=== PATIENT | male | born 1950 | race Hispanic/Latino ===

== ENCOUNTER 2016-12-25 07:45 | Observation (INO) | payer MEDICARE ==
[~2016-12-25] VITALS: Ht 162.6 cm; Wt 109.2 kg
[2016-12-25] VITALS (13 sets, daily range): BP systolic 102–136; BP diastolic 58–90; PULSE 65–92; RESP 13–23; O2SAT 96–100
[~2016-12-25 07:45] MED LIST: SILD100T PO
--- NOTE | 2016-12-25 07:48 | ED.REPORT ---
HPI-Chest Pain 40 and Over Date of Service Dec 25, 2016 ED Provider: Angela Heller MD Patient is a 66 year old male with a hx of borderline DM, chronic back pain and HTN who presents to the ED after having a near syncopal episode in diagnostic imaging for which a stat medical team was called. He was transferred from diagnostic imaging to the emergency department.. Pt states, "my head feels so heavy I can't open my eyes." He reports he has been having intermittent chest pain for a quite a while but it has recently gotten worse. The pain waxes and wanes but never completely dissipates. He currently rates his pain at a 5/10 in severity and does not radiate. Pt c/o associated SOB, dizziness, and diaphoresis. He has never and a stroke or heart attack. Pt has a prescription for nitroglycerin at home and has not taken his medication today. He reports that the nitroglycerin helps his chest pain. Dr. Hicks is is PCP. He is scheduled for an echo on Sunday. Nursing Notes Stated Complaint: DIZZY Nursing Notes Reviewed: Yes Allergies: Coded Allergies: No Known Allergies (Verified , 03/29/07) Scheduled PRN Sildenafil Citrate (Viagra) 100 Mg Tablet 100 MG PO UD PRN PRN for sexual activity General Time Seen by MD: 07:48 Transferred From: Private physician office Chief Complaint Chest pain Hx Obtained From: Patient, Claims Analyst Sudden in Onset?: Yes Onset Occurred: Just prior to arrival Symptom Duration: Since onset Location: : Chest left Radiation: : Does not radiate Severity: Current: Pain level 5 out of 10 Recent Healthcare: Recent doctor visit Similar Sx Previous: Yes Past Medical History Past Medical History borderline diabetic chronic lower back pain with sciatic down the right leg Reports: Hypertension Past Surgical History right shoulder surgery Smoking History Current Every Day Smoker Ambulatory Status Independent Review of Systems chronic lower back pain with sciatic down the right leg workup scheduled for next week Respiratory: Reports: Shortness of breath Cardiovascular: Reports: Chest pain Skin: Reports Diaphoresis Neurologic: Reports: Dizziness Complete sys rev & neg: except as marked. Physical Exam Initial Vital Signs Vital Signs (First) Date Time Temp Pulse Resp B/P Pulse Ox O2 Delivery O2 Flow Rate FiO2 12/25/16 07:49 36.7 73 21 102/58 100 Nasal Cannula 2 Initial VS: Reviewed Head / Eyes: Atraumatic, Normocephalic, PERRL ENT: Mucous membranes moist, Conjunctiva normal, No scleral icterus Back: No CVA tenderness Extremities: Vascular intact, Neuro intact, No swelling, No tenderness General/Constitutional: Awake, Cooperative well profused Respiratory / Chest: Atraumatic, Breath sounds NL, Breath sounds = bilat, No respiratory distress, No rales, No rhonchi, No wheezing, No retractions Cardiovascular: Heart rate NL, Regular rhythm, Heart sounds NL, No gallop, No murmurs, No rubs reproducible chest pain along the left sternal area, along the rib under the nipple line, but there is also chest pain that dissipates when treated with nitroglycerine Abdomen: Atraumatic, Soft, Non-tender, No guarding, No rebound, BS normoactive Interpretation & Diagnostics Lab Results Interpretation Result Diagram: 12/25/16 0755 12/25/16 0755 Test 12/25/16 07:55 White Blood Count 9.4th/mm3 (3.8-10.1) Red Blood Count 4.64mil/mm3 (4.40-5.80) Hemoglobin 14.4g/dL (13.8-17.2) Hematocrit 44.2% (41.0-50.0) Mean Corpuscular Volume 95.3fL (81-100) Mean Corpuscular Hemoglobin 31.0pg (27.0-35.0) Mean Corpuscular Hemoglobin Concent 32.6% (32.0-37.0) Red Cell Distribution Width 13.1% (12.3-15.4) Platelet Count 266bil/L (150-400) Neutrophils (%) (Auto) 42.6% (40-74) Lymphocytes (%) (Auto) 44.9% (14-46) Monocytes (%) (Auto) 8.1% (4-12) Eosinophils (%) (Auto) 3.5% (0-5) Basophils (%) (Auto) 0.6% (0-3) Sodium Level 138mEq/L (134-144) Potassium Level 4.4mEq/L (3.5-5.2) Chloride Level 102mEq/L (97-108) Carbon Dioxide Level 20mmol/L (18-29) Blood Urea Nitrogen 27mg/dL (8-27) Creatinine 0.99mg/dL (0.76-1.27) Estimat Glomerular Filtration Rate 80mL/min (>59) Glucose Level 136mg/dL (60-99) Calcium Level 8.5mg/dL (8.5-10.1) Total Bilirubin 0.2mg/dL (0.0-1.2) Aspartate Amino Transf (AST/SGOT) 18U/L (0-50) Alanine Aminotransferase (ALT/SGPT) 20U/L (0-44) Alkaline Phosphatase 53U/L (25-160) Total Protein 7.6g/dL (6.4-8.4) Albumin 4.2g/dL (3.4-5.0) Hold [place] Top Tube Received (Received) ECG Interpretation ECG Interpretation: Nonspecific intraventricular conduction delay Time: 07:46 Interpreted by: ED physician Normal ECG Interpretation: Normal sinus rhythm (67) ECG Interpretation: No acute changes with chest pain Time: 08:32 Interpreted by: ED physician Normal ECG Interpretation: Normal sinus rhythm (71) Re-Eval/Medical Decision Med Decision/Clinical Course Patient has 2 distinct types of chest pain. Clearly has musculoskeletal pain is reproducible with pressure on the left rib just under the nipple line and along the sternal border. Also has left internal chest pain that was associated with this near syncopal episode diaphoresis and acute dyspnea. At this point clearly needs additional cardiac workup. Was in diagnostic imaging this morning for stress test and is scheduled for an echocardiogram on Sunday. The internal chest pain is significantly diminished if not completely resolved with nitroglycerin and it remains abated with Nitropaste. Musculoskeletal chest pain was treated with Toradol and patient is transferred to the floor prior to efficacy reevaluation Recommend admission for 24-hour observation cycled enzymes see if he stable to do a nuclear medicine stress test tomorrow. He will also need to have echocardiogram facilitated while in-house Time of Eval: 10:03 Patient Status: Condition improved, Pain improved Re-Evaluation/Progress Note: Pt rechecked. Pain is reduced with medication. Concerned the pt is experiencing 2 types of pain, in his ribs and his heart. Informed patient of need for admission to monitor his heart activity. Counseled Regarding: Diagnosis, Lab results, Need for admission Discharge & Departure Primary Impression: Chest pain Chest pain type: unspecified Qualified Code: R07.9 - Chest pain, unspecified Disposition: ADMITTED TO HOSPITAL Discharge Condition All VS Reviewed: Yes Condition: Stable Referrals: Jackson Burns MD (PCP) Reynold Attestation Portion of this note were transcribed by Live Caro. I, Dr. Heller, personally performed the history, physical exam, and medical decision-making: I reviewed and confirmed the accuracy for the information in the transcribed note. Signed by: reynold Charlton, 12/25/16 1000 copies to: Jackson Burns MD, Shawna L MD Dec 25, 2016 07:48 LIVE CARO Dec 25, 2016 08:57
[2016-12-25 08:04] LABS: BASOPHILS % (AUTO) 0.6 % (0-3); EOSINOPHILS % (AUTO) 3.5 % (0-5); MONOCYTES % (AUTO) 8.1 % (4-12); Mean Corpuscular Volume 95.3 fL (81-100); NEUTROPHILS % (AUTO) 42.6 % (40-74); Platelet Count 266 bil/L (150-400)
[2016-12-25] MEDS ORDERED: Nitroglycerin 2% 1 Gm Ointment TOPICAL ONE (08:30)
[2016-12-25 08:31] LABS: TROPONIN T 0.01 ug/L (0.0-0.011)
[2016-12-25 08:42] LABS: Magnesium 2.2 mg/dL (1.6-2.6)
[2016-12-25] MEDS ORDERED: Ondansetron 2 mg/mL 2 mL Inj ONE (09:05)
[2016-12-25] MEDS ORDERED: Ondansetron 2 mg/mL 2 mL Inj IVPUSH PRN ×2 (11:30→12:30)
[2016-12-25] MEDS ORDERED: Alum-Mag Hydrox-Simeth 30 mL Suspension PO PRN ×2 (11:30→12:30)
[2016-12-25] MEDS ORDERED: Polyethylene Glycol (PEG) 17 Gm Powder PO PRN (12:30)
[2016-12-25] MEDS ORDERED: Atropine 1 mg/10 mL (Code) Syringe IVPUSH PRN (12:30)
[2016-12-25] MEDS ORDERED: Senna-Docusate 8.6-50 mg Tablet PO PRN (12:30)
--- NOTE | 2016-12-25 12:48 | PCM.HPMED ---
Subjective Date of Service Dec 25, 2016 Primary Provider: Admitting Physician: Jaden Pacheco MD Primary Care Physician: Jackson Burns MD Attending Physician: Jaden Pacheco MD Admit Status: From the Emergency Department, 23-Hour Observation Chief Complaint: Chest Pain, Near Syncope History of Present Illness: Patient is a 66 year old male with a past medical history of Hyperlipidemia. He presents to the ER today complaining of chest pain and near syncope. Pt was having an outpatient exercise stress test today, when he became very lightheaded and nearly collapsed. Pt states his head "felt very heavy". He states he did not lose consciousness and fall. Pt states he began to feel very dizzy during the test and felt he was going to fall, and his test was stopped and he was sent to the ER for further evaluation. Pt states he is having chest pain also today. He states he has been having ongoing chest pain over the left side of his chest for quite some time, however, today it seemed to worsen. Pt states the pain is a sharp sensation. He is unable to relate whether this pain improves or worsens with activity. He does report his pain is associated with shortness of breath, diaphoresis, and dizziness. He denies palpitations, nausea , and vomiting. In the ER, pt was given topical Nitroglycerin which did improve his pain almost immediately, he reports. Pt is currently symptom free. No other complaints or concerns at this time. Review of Systems: All systems reviewed and are negative except for what has already been mentioned in the HPI. Allergies Coded Allergies: No Known Allergies (Verified , 03/29/07) Home Medications 1. Atorvastatin, dosage unknown PMH 1. Hyperlipidemia 2. Obesity Surgical History None Family History 1. Father - of an unknown cancer, pt denies any hx of CAD 2. Mother - of breast cancer, had a hx of Diabetes Mellitus Social History Hx Alcohol Use: No Hx Substance Use: No Hx Tobacco Use: No (1-2 cigs/day @ work) Smoking Status: Never Smoker Exam Vital Signs Vital Sign - Last Date Time Temp Pulse Resp B/P Pulse Ox O2 Delivery O2 Flow Rate FiO2 12/25/16 11:53 36.4 92 20 122/81 96 Room Air 12/25/16 11:18 2 Exam GEN: NAD, Pt laying in bed comfortably HEENT: AT/NC; PERRLA, EOMI, MM moist NECK: Supple CARDIAC: RRR, No M/R/G PULM: CTAB ABD: Soft, NT, ND, Positive bowel sounds in all quadrants, No hepatosplenomegaly appreciated EXT: No C/C/E bilaterally; No calve tenderness bilaterally SKIN: Warm, dry, pink, and intact NEURO: Alert and oriented x3; Following all commands Lab and Diagnostics Result Diagram: 12/25/16 0755 12/25/16 0755 Assessment & Plan Patient is a 66 year old male with a history of Hyperlipidemia admitted to hospital for near syncope, and chest pain. 1. Chest Pain - Present on admission - EKG in ER did not reveal any ST of T wave changes indicative of myocardial ischemia - Start Aspirin 81 mg daily - SL Nitroglycerin PRN - Check Troponin q 6 hours x4 - Check Lipid Panel in AM - Telemetry monitoring - Will order an ECHO at this time - NPO after midnight for NM cardiac stress test in AM - Will order a CT angiogram of the chest to rule out PE now - EKG PRN chest pain - IV Morphine PRN chest pain not relieved by SL Nitroglycerin 2. Hyperlipidemia - Atorvastatin 80 mg q HS - Check fasting lipid panel in AM 3. Obesity 4. Disposition - Anticipate discharge to home in AM if work-up for ACS is negative FULL CODE, per discussion with patient at bedside. Jaden Pacheco MD Dec 25, 2016 12:48
[2016-12-25] MEDS: 0.9% Sodium Chloride 1,000 ML IV SCH (13:02)
[2016-12-25 13:53] LABS: TROPONIN T < 0.010 ug/L (0.0-0.011)
[2016-12-25 14:01] LABS: Creatine Kinase 106 U/L (21-232); Magnesium 2.1 mg/dL (1.6-2.6)
--- NOTE | 2016-12-25 14:11 | DRSVH ---
PROCEDURE: CT ANGIO CHEST PULMONARY EMBOLISM ([id number]) INDICATIONS: Chest Pain, Rule out PE TECHNIQUE: After the administration of intravenous contrast, 2 mm thick sections acquired from the pulmonary api ayana to the posterior costophrenic angles. 3-dimensional maximum intensity projection (MIP) coronal a nd sagittal reformats were then acquired through the thorax. For radiation dose reduction, the follo wing was used: automated exposure control, adjustment of mA and/or kV according to patient size. COMPARISON: [facility] , CT, CHEST W/O CONTRAST, 04/17/2011, 8:53. [facility], CT, CHEST WITH CONTRAST, 08/30/2000, 8:47. FINDINGS: Image quality: Excellent. Pulmonary arteries: Pulmonary arteries are normal in size, and demonstrate no intraluminal filling d efects to suggest central pulmonary embolism. Lungs and pleura: A 13 mm diameter nodule within the right posterior lung base is present, as before. There is a new cavity surrounding this nodule, measuring 21 mm, just in this may represent a mycetom a. There is increased, moderate basilar predominant interstitial pulmonary opacity. Calcified granulo ma within the right upper lobe posterolaterally is present, as before. No pleural effusions or pneumo thorax. Central and peripheral airways are patent. Mediastinum: Heart size is normal, without pericardial effusion. No mediastinal or hilar adenopathy . No change in mildly prominent lymph node adjacent to the distal esophagus, measuring 9 mm short axi s. Thoracic aorta is normal in caliber and enhancement. Esophagus is normal in caliber, without hiat al hernia. Bones and chest wall: No suspicious bony lesions. Ribs and thoracic spine appear intact throughout. Thyroid gland and is within normal limits. No axillary or supraclavicular adenopathy. Abdomen: Visualized portions of the upper abdomen demonstrate an increased, 20 mm diameter partially exophytic low-density focus protruding anteriorly from the pancreatic tail. IMPRESSION: 1. No acute process. No pulmonary embolus. 2. Remote granulomatous disease. 3. The previously seen right lower lobe nodule is unchanged. However, there is a new surrounding cavi ty, suggesting that this may represent a mycetoma. 3. Increased, moderate basilar predominant interstitial lung disease. 4. Increased low density focus involving the pancreatic tail; initial further assessment with pancrea tic protocol CT is recommended. Dictated by: Joe Blanchard M.D. on 12/25/2016 at 14:03 Approved by: Joe Blanchard M.D. on 12/25/2016 at 14:09
[2016-12-25] MEDS ORDERED: ATOR20TA PO (14:51)
[2016-12-25] MEDS ORDERED: NITR0.4T SL (14:53)
--- NOTE | 2016-12-25 15:52 | NUR ---
Case Management: Explained SWARTZ with supervisor assembly room present. Patient signed. Provided copy to patient and original in chart. Patient denied questions at this time. CPerryRNCCM.
[2016-12-25] MEDS: Sodium Chloride LOK Flush 10 mL Syringe IVFLUSH SCH (16:07)
--- NOTE | 2016-12-25 16:52 | NUR ---
Admit Patient arrived to [facility] around 1445 from ED. Patient report was called to Kaye Meza from ED and Kaye Meza gave report to Naomi Griffith RN. Patient did have continued pain to lateral chest of 2/10. Patient was oriented to call light, bed, visiting hours, smoking policy, room and staff. Patient was connected to NS at 80mL/hour. Telemetry placed on patient. Patient admit was completed with the use of alpine guide.
[2016-12-25 19:22] LABS: TROPONIN T < 0.010 ug/L (0.0-0.011)
[2016-12-25 19:32] LABS: Creatine Kinase 116 U/L (21-232)
[2016-12-26] VITALS (8 sets, daily range): BP systolic 128–158; BP diastolic 76–89; PULSE 68–95; RESP 18–20; O2SAT 94–98
[2016-12-26] MEDS: Sodium Chloride LOK Flush 10 mL Syringe IVFLUSH SCH ×3 (00:30→15:42)
[2016-12-26 01:52] LABS: Creatine Kinase 122 U/L (21-232)
[2016-12-26] MEDS: 0.9% Sodium Chloride 1,000 ML IV SCH ×3 (03:10→17:58)
[2016-12-26 06:01] LABS: BASOPHILS % (AUTO) 0.5 % (0-3); EOSINOPHILS % (AUTO) 3.2 % (0-5); MONOCYTES % (AUTO) 8.7 % (4-12); Mean Corpuscular Hemoglobin 31.3 pg (27.0-35.0); Mean Corpuscular Volume 95.4 fL (81-100); NEUTROPHILS % (AUTO) 44.7 % (40-74); Platelet Count 250 bil/L (150-400)
--- NOTE | 2016-12-26 06:20 | NUR ---
Chest Pain Patient states continuous left lateral chest pain/pressure 2-02/19, "not completely go away" for years due to work related accident per pt, increase with deep breathing, no radiation. RT call for stat EKG at late pm, no apparent change compared with yesterday, Nitroglycerin givenx2, pain down to 2 in 30min,then resolved and pt sleeping comfortable overnight. VSS. Tele: SR [phone] per laboratory monitor.
[2016-12-26 06:29] LABS: Creatine Kinase 121 U/L (21-232)
--- NOTE | 2016-12-26 14:05 | DRSVH ---
PROCEDURE: 2 DAY STRESS TEST Rest and exercise myocardial perfusion SPECT with gated imaging and ejection fraction RADIOPHARMACEUTICAL: 20.3 mCi Tc-99m tetrafosmin IV at rest and 22.1 mCi Tc-99m tetrafosmin IV at pea k exercise. [id number] was performed. INDICATIONS: Chest Pain. TECHNIQUE: Radiopharmaceutical was injected at peak stress test, and also at rest. SPECT images wer e obtained. SPECT myocardial perfusion images were displayed in short axis, horizontal long axis, an d vertical long axis views. Gated images were reviewed using [employer] software. COMPARISON: None. CARDIAC STRESS: A standard Matty treadmill exercise tolerance test was performed by the patient under the supervision of an attending staff. The patient exercised for 6 minutes and 0 seconds; functional aerobic impair ment (ILIANA) is +11 %. Hemodynamic data: There is normal blood pressure and heart rate response to exercise stress. Patien t achieved 95% of maximum predicted heart rate at peak exercise. Symptoms: Patient had 7/10 chest pain at peak stress. Location of chest discomfort was upper chest a nd lower neck area. EKG: No diagnostic EKG changes of ischemia; no ectopy. FINDINGS: Raw data: There is good myocardial labeling by radiotracer. No significant motion artifacts. Left ventricle function: Gated images demonstrate normal left ventricle wall thickening. No segment al wall motion abnormality. The left ventricle resting end-diastolic volume is 83 mL. Left ventricl e stress ejection fraction is more than 70%; normal values are above 45%. Myocardial perfusion: There is an inferior perfusion defect noted on the supine stress images. Howev er on prone stress images the perfusion defect resolves completely. Otherwise there are no other perf usion defects noted on both stress and rest images. IMPRESSION: This is a normal myocardial perfusion study. There is an inferior perfusion defect which resolves with prone imaging. This is consistent with diaphragmatic attenuation artifact. LV wall mot ion and LV ejection fraction are both normal. Stress EKG is normal. Patient had chest pain during pea k stress that based on the findings mentioned above this is most likely noncardiogenic chest pain. Eileen miranda this is considered to be at low risk study. Dictated by: Pietro Salinas Jr., M.D. on 12/26/2016 at 13:59 Approved by: Pietro Salinas Jr., M.D. on 12/26/2016 at 14:03
--- NOTE | 2016-12-26 14:37 | NUR ---
Chest pain Pt denies chest pain this shift. Pt ambulating in hallway independently as well as in room
--- NOTE | 2016-12-26 15:06 | PCM.PNMED ---
Subjective Date of Service Dec 26, 2016 Subjective Patient reports that he is doing well. He denies any chest pain, shortness of breath, sweating, nausea, vomiting or diarrhea. Pt states that his only complaint is that he was not able to have coffee, and thus feels very sleepy this morning. Patient reports that he is at his baseline of health. Exam Vital Signs Vital Sign - Last Date Time Temp Pulse Resp B/P Pulse Ox O2 Delivery O2 Flow Rate FiO2 12/26/16 14:41 36.8 68 18 158/89 98 Room Air 12/25/16 11:18 2 Intake and Output 12/25/16 12/25/16 12/26/16 Cumulative From/Thru 14:59 22:59 06:59 12/25/16 07:49 - 12/26/16 06:57 Intake Total 936 ml 2172 ml 3108 ml Output Total 1325 ml 1325 ml Balance 936 ml 847 ml 1783 ml Intake Oral 768 ml 1100 ml 1868 ml IV Total 168 ml 1072 ml 1240 ml Output Urine Total 1325 ml 1325 ml # Voids 0 0 IVs and Medications Medications Reviewed: Medications were reviewed in detail Lab and Diagnostics Result Diagram: 12/26/16 0510 12/26/16 0510 X-Rays, CTs and MRIs PROCEDURE: CT ANGIO CHEST PULMONARY EMBOLISM ([id number]) INDICATIONS: Chest Pain, Rule out PE TECHNIQUE: After the administration of intravenous contrast, 2 mm thick sections acquired from the pulmonary apices to the posterior costophrenic angles. 3-dimensional maximum intensity projection (MIP) coronal and sagittal reformats were then acquired through the thorax. For radiation dose reduction, the following was used: automated exposure control, adjustment of mA and/or kV according to patient size. COMPARISON: [facility] , CT, CHEST W/O CONTRAST, 04/17/2011, 8: [address]. [facility], CT, CHEST WITH CONTRAST, 08/30/2000, 8:47. FINDINGS: Image quality: Excellent. Pulmonary arteries: Pulmonary arteries are normal in size, and demonstrate no intraluminal filling defects to suggest central pulmonary embolism. Lungs and pleura: A 13 mm diameter nodule within the right posterior lung base is present, as before. There is a new cavity surrounding this nodule, measuring 21 mm, just in this may represent a mycetoma. There is increased, moderate basilar predominant interstitial pulmonary opacity. Calcified granuloma within the right upper lobe posterolaterally is present, as before. No pleural effusions or pneumothorax. Central and peripheral airways are patent. Mediastinum: Heart size is normal, without pericardial effusion. No mediastinal or hilar adenopathy. No change in mildly prominent lymph node adjacent to the distal esophagus, measuring 9 mm short axis. Thoracic aorta is normal in caliber and enhancement. Esophagus is normal in caliber, without hiatal hernia. Bones and chest wall: No suspicious bony lesions. Ribs and thoracic spine appear intact throughout. Thyroid gland and is within normal limits. No axillary or supraclavicular adenopathy. Abdomen: Visualized portions of the upper abdomen demonstrate an increased, 20 mm diameter partially exophytic low-density focus protruding anteriorly from the pancreatic tail. IMPRESSION: 1. No acute process. No pulmonary embolus. 2. Remote granulomatous disease. 3. The previously seen right lower lobe nodule is unchanged. However, there is a new surrounding cavity, suggesting that this may represent a mycetoma. 3. Increased, moderate basilar predominant interstitial lung disease. 4. Increased low density focus involving the pancreatic tail; initial further assessment with pancreatic protocol CT is recommended. Dictated by: Joe Blanchard M.D. on 12/25/2016 at 14:03 Approved by: Joe Blanchard M.D. on 12/25/2016 at 14:09 PROCEDURE: 2 DAY STRESS TEST Rest and exercise myocardial perfusion SPECT with gated imaging and ejection fraction RADIOPHARMACEUTICAL: 20.3 mCi Tc-99m tetrafosmin IV at rest and 22.1 mCi Tc-99m tetrafosmin IV at peak exercise. Kir-clt-nfkeyvox was performed. INDICATIONS: Chest Pain. TECHNIQUE: Radiopharmaceutical was injected at peak stress test, and also at rest. SPECT images were obtained. SPECT myocardial perfusion images were displayed in short axis, horizontal long axis, and vertical long axis views. Gated images were reviewed using AutoQUANT software. COMPARISON: None. CARDIAC STRESS: A standard Matty treadmill exercise tolerance test was performed by the patient under the supervision of an attending staff. The patient exercised for 6 minutes and 0 seconds; functional aerobic impairment (ILIANA) is +11 %. Hemodynamic data: There is normal blood pressure and heart rate response to exercise stress. Patient achieved 95% of maximum predicted heart rate at peak exercise. Symptoms: Patient had 7/10 chest pain at peak stress. Location of chest discomfort was upper chest and lower neck area. EKG: No diagnostic EKG changes of ischemia; no ectopy. FINDINGS: Raw data: There is good myocardial labeling by radiotracer. No significant motion artifacts. Left ventricle function: Gated images demonstrate normal left ventricle wall thickening. No segmental wall motion abnormality. The left ventricle resting end-diastolic volume is 83 mL. Left ventricle stress ejection fraction is more than 70%; normal values are above 45%. Myocardial perfusion: There is an inferior perfusion defect noted on the supine stress images. However on prone stress images the perfusion defect resolves completely. Otherwise there are no other perfusion defects noted on both stress and rest images. IMPRESSION: This is a normal myocardial perfusion study. There is an inferior perfusion defect which resolves with prone imaging. This is consistent with diaphragmatic attenuation artifact. LV wall motion and LV ejection fraction are both normal. Stress EKG is normal. Patient had chest pain during peak stress that based on the findings mentioned above this is most likely noncardiogenic chest pain. Overall this is considered to be at low risk study. Dictated by: Pietro Salinas Jr., M.D. on 12/26/2016 at 13:59 Approved by: Pietro Salinas Jr., M.D. on 12/26/2016 at 14:03 Assessment & Plan Patient is a 66 year old male with a history of Hyperlipidemia admitted to hospital for near syncope, and chest pain. Acute chest pain, present on admission, resolved - EKG in ER did not reveal any ST of T wave changes indicative of myocardial ischemia - Started Aspirin 81 mg daily - SL Nitroglycerin PRN -Troponin have all been negative - Lipid Panel performed, results above -ECHO pending -NM cardiac stress test--reported as low risk study -CT angiogram of the chest--No PE, remote granulomatous disease.The previously seen right lower lobe nodule is unchanged. However, there is a new surrounding cavity, suggesting that this may represent a mycetoma.Increased, moderate basilar predominant interstitial lung disease.Increased low density focus involving the pancreatic tail" - EKG PRN chest pain - IV Morphine PRN chest pain not relieved by SL Nitroglycerin Incidental finding of low density focus involving pancreatic tail, ongoing -CT pancreas protocol ordered, results pending Hyperlipidemia - Continue Atorvastatin 80 mg q HS Obesity -Recommend outpatient guidance for lifestyle changes, and weight loss. Disposition - Anticipate discharge to home in AM if work-up for ACS is negative FULL CODE, per discussion with patient at bedside. VTE Mechanical Devices: Intermittant Pneumatic CD Resuscitation Status: CPR: Attempt Resuscitation Attending Statement The patient was seen and examined together with Dr. Edouard on 12/26/2016 and I agree with the history, exam and plan as outlined in the note above. Kacie Edouard DO Dec 26, 2016 15:06 Jaden Pacheco MD Dec 27, 2016 12:42
--- NOTE | 2016-12-26 15:33 | NUR ---
Social Work Initial Assessment: SW met with patient at bedside to discuss discharge plan. Patient is a 66 year old male admitted under observation status on 12/25/16 for chest pain. Patient payer as [email or web address]. Patient has no terminal manager disability nor [place] benefits. Patient PCP as MD Burns. Patient resides in [facility] with [place], who assist with care needs. Patient pharmacy of choice as [facility]. Patient has no previous HHC, SNF, DME or AD history. Patient states being independent with needs at baseline and has no identified discharge needs at this time. SW will continue to follow. PLAN: Home with via POV. No anticipated discharge needs identified at this time. SW to follow pending further clinical course Toni PENA Addendum: 12/26/16 at 1536 by GELY SHARP SS Amended: Links added.
--- NOTE | 2016-12-26 16:27 | DRSVH ---
[facility] [address] [place] [address] Echocardiogram Report Name: MARTÍN FERNANDEZ LStudy Date: 12/26/2016 Height: 64 in Hospital Exam Location: [facility] Weight: 239 lb Gender: Male BSA: 2.1 m2 : 1950 Age: 66 yrs BP: 129/88 mmHg Reason For Study: Chest pain Ordering Physician: HOSPITALIST [facility] Performed By: Herbert Maguire Referring Physician: KATH ALVAREZ Interpretation Summary 1) Borderline concentric left ventricular hypertrophy with normal size, wall motion, and systolic function (EF 65-70%). 2) Normal right ventricular size and function. 3) No significant valvular abnormalities. 4) No prior Echo available for comparison. Procedure: A two-dimensional transthoracic echocardiogram with color flow and Doppler was performed. The study quality was technically adequate. A contrast injection of Definity was performed to improve assessment of LV function. The patient was in normal sinus rhythm during the exam. Left Ventricle: The left ventricle is normal in size. There is borderline concentric left ventricular hypertrophy. The ejection fraction is estimated to be 65-70%. Left ventricular systolic function is normal. Left ventricular wall motion is normal. Right Ventricle: The right ventricle is normal in size, thickness and function. Atria: The left atrial size is normal. The right atrium grossly appears normal in size. The interatrial septum is intact with no evidence for an atrial septal defect. Mitral Valve: The mitral valve is normal. There is trace mitral regurgitation. Aortic Valve: The aortic valve is normal in structure and function. There is no aortic valve stenosis. No aortic regurgitation is present. Tricuspid Valve: The tricuspid valve is normal. There is mild tricuspid regurgitation. Right ventricular systolic pressure is estimated to be 32 mmHg plus the clinically estimated CVP which cannot be estimated on this exam. Pulmonic Valve: The pulmonic valve leaflets are thin and pliable; valve motion is normal. There is no pulmonic valvular regurgitation. Great Vessels: The aortic root is normal size. The ascending aorta is at the upper limits of normal in size. The pulmonary artery is normal size. The inferior vena cava was not well visualized. Pericardium/ Pleura There is no pericardial effusion. There is an anterior echo-free space consistent with a fat pad. There is no pleural effusion. MMode/2D Measurements & Calculations LVIDd: 4.9 cm LA A2 area LVOT diam: 2.5 cm LV mauricio. diameter/BSA LVIDs: 3.0 cm Ao root diam (cm/m^2): 2.3 FS: 38.1 % IVSd: 1.4 cm LA A4 area asc Aorta Diam LVPWd: 1.1 cm LA length Ao Arch Diam (vol): 5.3 cm (Prox Trans): LA vol: 52.9 ml .9 cm LA vol index : 25.1 ml/m2 LV sys. diameter/BSA (cm/m^2): 1.4 Doppler Measurements & Calculations Ao V2 max MV E max codey MV E/A: 0.70 TR max codey : 141.8 cm/sec : 71.9 cm/sec Med Peak E' Codey : 280.9 cm/sec Ao max P.0 mmHg MV A max codey TR max PG Ao mean P.8 mmHg : 103.4 cm/sec E/E' med: 11.6 : 31.6 mmHg LVOT Max Codey Lat Peak E' Codey PA V2 max : 118.7 cm/sec : 104.2 cm/sec E/E' lat: 10.0 PA mean PG PRIETO(I,D): 4.8 cm E/e' average : 2.4 mmHg sev ratio: 0.98 MV dec time: 0.14 sec Ao V2 mean LV V1 max PG PA V2 mean : 93.3 cm/sec : 73.4 cm/sec Ao V2 VTI: 25.5 cmLV V1 VTI PA pr(Accel) : 25.0 cm : 47.9 mmHg PRIETO(V,D): 4.1 cm2 PRIETO indexed to [facility] (cm^2/m^2): 2.3 Reading Physician:04:26 PM
--- NOTE | 2016-12-26 16:59 | DRSVH ---
PROCEDURE: CT ABDOMEN PANCREATIC PROTOCOL INDICATIONS: Pancreatic lesion on recent chest CT. TECHNIQUE: Noncontrast 3 mm thick sections acquired through the pancreas. After the administration of intraveno us contrast, 3 mm thick pancreatic-phase images acquired through the pancreas, and 5 mm thick portal venous-phase images then acquired from the diaphragm to the iliac crests. 5 mm thick coronal and sag ittal reformats were performed. For radiation dose reduction, the following was used: automated exp osure control, adjustment of mA and/or kV according to patient size. COMPARISON: [facility] , CT, CHEST W/O CONTRAST, 04/17/2011, 8:53. [facility], CT, CT ANGIO CHEST PE, 12/25/2016, 13:33. FINDINGS: Image quality: Excellent. Lung bases: Scarring and fibrotic changes are redemonstrated in the visualized lung bases. Within t he right lower lobe, there is an unchanged 1.6 cm nodule with an associated small cavity redemonstrat ed. There is a small hiatal hernia. Heart size is normal. Pancreas: Within the tail of the pancreas, there is an ovoid cystic mass measuring up to 2.8 x 2.4 cm in transverse dimension which demonstrates internal enhancement following contrast administration. This appears enlarged compared to the prior there is no associated pancreatic duct dilatation. No ad ditional pancreatic lesions identified.. Other solid organs: Liver and spleen are normal in size. There is mild focal fatty infiltration wit hin the anterior left hepatic lobe. Gallbladder appears within normal limits without calcified galls tones. Biliary system is non dilated. No adrenal nodules. Kidneys are normal in size and enhanceme nt, without hydronephrosis. Peritoneum and bowel: Visualized bowel loops demonstrate normal wall thickness and caliber. There is colonic diverticulosis. No free fluid or air. Nodes and vessels: No retroperitoneal or mesenteric adenopathy by size criteria. Aorta and inferior vena cava are normal in size. Bones: No suspicious bony lesions. No vertebral body compression fractures. Miscellaneous: No ventral hernias. IMPRESSION: 1. Lobulated enhancing cystic mass within the tail of the pancreas most likely represents a mucinous neoplasm such as mucinous cystadenocarcinoma. The differential includes a side branch intraductal p apillary mucinous neoplasm (IPMN). Recommend surgical consultation. 2. Stable 1.6 cm right lower lobe pulmonary nodule. Dictated by: Hakeem Howard M.D. on 12/26/2016 at 16:52 Approved by: Hakeem Howard M.D. on 12/26/2016 at 16:57
--- NOTE | 2016-12-26 18:35 | NUR ---
Activity/pain Assumed care of pt at 1500. Pt up, ambulating in room and hallways. Denies any CP/discomfort at this time. Currently resting comfortably in bed which is in the lowest, locked position.
[2016-12-27] MEDS: Sodium Chloride LOK Flush 10 mL Syringe IVFLUSH SCH ×2 (00:27→08:30)
[2016-12-27 00:58] VITALS: BP 124/81; PULSE 83; RESP 18; O2SAT 94
--- NOTE | 2016-12-27 05:18 | NUR ---
Uneventful Night Pt alert and orientedx3,denies chest pain/pressure/any pain/SOB/n/v/fever/chills. VSS, sleeping comfortably after Ambien taken at HS.
[2016-12-27 05:31] VITALS: BP 131/85; PULSE 68; RESP 18; O2SAT 96
[2016-12-27 05:58] LABS: BASOPHILS % (AUTO) 0.5 % (0-3); EOSINOPHILS % (AUTO) 3.6 % (0-5); MONOCYTES % (AUTO) 8.9 % (4-12); Mean Corpuscular Hemoglobin 31.3 pg (27.0-35.0); Mean Corpuscular Volume 95.4 fL (81-100); NEUTROPHILS % (AUTO) 44.8 % (40-74); Platelet Count 234 bil/L (150-400)
[2016-12-27] MEDS: 0.9% Sodium Chloride 1,000 ML IV SCH (06:07)
[2016-12-27 09:11] VITALS: BP 128/81; PULSE 78; RESP 16; O2SAT 99
[2016-12-27 10:34] VITALS: PULSE 110
--- NOTE | 2016-12-27 11:43 | NUR ---
shift report Pt alert and orientated x 3. Denies chest pain, denies SOB, denies N/V/D. Pt states he "feels good" and is awaiting discharge. Pt ambulating halls frequently without any difficulties. Pt currently resting, bed in low position, call light within reach. Pt has no questions at this time.
[2016-12-27 13:44] VITALS: BP 122/73; PULSE 80; RESP 16; O2SAT 96
--- NOTE | 2016-12-27 14:26 | PCM.DIMED ---
Kacie Edouard DO 12/27/16 1426: Discharge Instructions Date of Service Dec 27, 2016 Dates of Hospitalization Dec 25, 2016 at 10:39 Discharge Diagnosis Discharge Diagnosis Acute chest pain, present on admission, resolved Incidental finding of low density focus involving pancreatic tail, ongoing Hyperlipidemia Obesity Diet No restrictions Activity No restrictions Call your provider Fever or Chills, Shortness of breath, Bleeding, Chest pain, Vomitting, Weakness (unilateral), Other Patient Instructions Your stress test did not show anything concerning. The CT of your pancreas showed a small cyst. You need to follow up with the Surgeon in his clinic in the next week. Follow-up Provider: Power Bowman MD Follow-up with PCP in: 1 week Provider: Jackson Burns MD Follow-up in: 1 week Jaden Pacheco MD 01/04/17 1349: Kacie Edouard DO Dec 27, 2016 14:26 Jaden Pacheco MD Jan 04, 2017 13:49
--- NOTE | 2016-12-27 14:51 | NUR ---
Social Work: Discharge Data: Pt is on day 2 of hospitalization. EMR reviewed. D/C orders are in. No d/c planning needs at this time. TANK HOOP BENDER will continue to follow if needs arise. Assessment: Pt who is independent at baseline. Plan: Pt will d/c home via POV today. No d/c planning needs at this time. TANK HOOP BENDER will continue to follow if needs arise. BECKY Nelson
--- NOTE | 2016-12-27 16:39 | NUR ---
DC Patient discharged to home at 1626. Pt was ambulatory off medical floor accompanied by student nurse. All personal belongings sent home with patient. Discharge instructions given and explained to patient along with clinical instructor via Gambian speaking seismic interpreter. No new prescriptions given, care notes provided, and pt instructed to follow up with both his primary care provider and the surgeon in one week. Pt verbalized understanding, and has no further questions or concerns.
--- NOTE | 2016-12-28 22:08 | PCM.DC.MED ---
Discharge Summary Date of Service Dec 27, 2016 Dates of Hospitalization Date of Hospital Admission Dec 25, 2016 at 10:39 Date of Discharge: Dec 27, 2016 Providers: Admitting Physician: Jaden Pacheco MD Primary Care Physician: Jackson Burns MD Attending Physician: Jaden Pacheco MD Diagnosis at Time of Discharge Diagnosis at Time of Discharge Acute chest pain, present on admission, resolved Incidental finding of low density focus involving pancreatic tail, ongoing Hyperlipidemia Obesity Procedures XRay, CTs & MRIs PROCEDURE: CT ANGIO CHEST PULMONARY EMBOLISM ([id number]) INDICATIONS: Chest Pain, Rule out PE TECHNIQUE: After the administration of intravenous contrast, 2 mm thick sections acquired from the pulmonary apices to the posterior costophrenic angles. 3-dimensional maximum intensity projection (MIP) coronal and sagittal reformats were then acquired through the thorax. For radiation dose reduction, the following was used: automated exposure control, adjustment of mA and/or kV according to patient size. COMPARISON: [facility] , CT, CHEST W/O CONTRAST, 04/17/2011, 8: [address]. [facility], CT, CHEST WITH CONTRAST, 08/30/2000, 8:47. FINDINGS: Image quality: Excellent. Pulmonary arteries: Pulmonary arteries are normal in size, and demonstrate no intraluminal filling defects to suggest central pulmonary embolism. Lungs and pleura: A 13 mm diameter nodule within the right posterior lung base is present, as before. There is a new cavity surrounding this nodule, measuring 21 mm, just in this may represent a mycetoma. There is increased, moderate basilar predominant interstitial pulmonary opacity. Calcified granuloma within the right upper lobe posterolaterally is present, as before. No pleural effusions or pneumothorax. Central and peripheral airways are patent. Mediastinum: Heart size is normal, without pericardial effusion. No mediastinal or hilar adenopathy. No change in mildly prominent lymph node adjacent to the distal esophagus, measuring 9 mm short axis. Thoracic aorta is normal in caliber and enhancement. Esophagus is normal in caliber, without hiatal hernia. Bones and chest wall: No suspicious bony lesions. Ribs and thoracic spine appear intact throughout. Thyroid gland and is within normal limits. No axillary or supraclavicular adenopathy. Abdomen: Visualized portions of the upper abdomen demonstrate an increased, 20 mm diameter partially exophytic low-density focus protruding anteriorly from the pancreatic tail. IMPRESSION: 1. No acute process. No pulmonary embolus. 2. Remote granulomatous disease. 3. The previously seen right lower lobe nodule is unchanged. However, there is a new surrounding cavity, suggesting that this may represent a mycetoma. 3. Increased, moderate basilar predominant interstitial lung disease. 4. Increased low density focus involving the pancreatic tail; initial further assessment with pancreatic protocol CT is recommended. Dictated by: Joe Blanchard M.D. on 12/25/2016 at 14:03 Approved by: Joe Blanchard M.D. on 12/25/2016 at 14:09 PROCEDURE: 2 DAY STRESS TEST Rest and exercise myocardial perfusion SPECT with gated imaging and ejection fraction RADIOPHARMACEUTICAL: 20.3 mCi Tc-99m tetrafosmin IV at rest and 22.1 mCi Tc-99m tetrafosmin IV at peak exercise. [id number] was performed. INDICATIONS: Chest Pain. TECHNIQUE: Radiopharmaceutical was injected at peak stress test, and also at rest. SPECT images were obtained. SPECT myocardial perfusion images were displayed in short axis, horizontal long axis, and vertical long axis views. Gated images were reviewed using [employer] software. COMPARISON: None. CARDIAC STRESS: A standard Matty treadmill exercise tolerance test was performed by the patient under the supervision of an attending staff. The patient exercised for 6 minutes and 0 seconds; functional aerobic impairment (ILIANA) is +11 %. Hemodynamic data: There is normal blood pressure and heart rate response to exercise stress. Patient achieved 95% of maximum predicted heart rate at peak exercise. Symptoms: Patient had 7/10 chest pain at peak stress. Location of chest discomfort was upper chest and lower neck area. EKG: No diagnostic EKG changes of ischemia; no ectopy. FINDINGS: Raw data: There is good myocardial labeling by radiotracer. No significant motion artifacts. Left ventricle function: Gated images demonstrate normal left ventricle wall thickening. No segmental wall motion abnormality. The left ventricle resting end-diastolic volume is 83 mL. Left ventricle stress ejection fraction is more than 70%; normal values are above 45%. Myocardial perfusion: There is an inferior perfusion defect noted on the supine stress images. However on prone stress images the perfusion defect resolves completely. Otherwise there are no other perfusion defects noted on both stress and rest images. IMPRESSION: This is a normal myocardial perfusion study. There is an inferior perfusion defect which resolves with prone imaging. This is consistent with diaphragmatic attenuation artifact. LV wall motion and LV ejection fraction are both normal. Stress EKG is normal. Patient had chest pain during peak stress that based on the findings mentioned above this is most likely noncardiogenic chest pain. Overall this is considered to be at low risk study. Dictated by: Pietro Salinas Jr., M.D. on 12/26/2016 at 13:59 Approved by: Pietro Salinas Jr., M.D. on 12/26/2016 at 14:[address] Pacheco's H&P "Patient is a 66 year old male with a past medical history of Hyperlipidemia. He presents to the ER today complaining of chest pain and near syncope. Pt was having an outpatient exercise stress test today, when he became very lightheaded and nearly collapsed. Pt states his head "felt very heavy". He states he did not lose consciousness and fall. Pt states he began to feel very dizzy during the test and felt he was going to fall, and his test was stopped and he was sent to the ER for further evaluation. Pt states he is having chest pain also today. He states he has been having ongoing chest pain over the left side of his chest for quite some time, however, today it seemed to worsen. Pt states the pain is a sharp sensation. He is unable to relate whether this pain improves or worsens with activity. He does report his pain is associated with shortness of breath, diaphoresis, and dizziness. He denies palpitations, nausea , and vomiting. In the ER, pt was given topical Nitroglycerin which did improve his pain almost immediately, he reports. Pt is currently symptom free. No other complaints or concerns at this time. " Hospital Course Patient is a 66 year old male with a history of Hyperlipidemia admitted to hospital for near syncope, and chest pain. Acute chest pain, present on admission, resolved - EKG in ER did not reveal any ST of T wave changes indicative of myocardial ischemia - Started Aspirin 81 mg daily - SL Nitroglycerin PRN -Troponins negative - Lipid Panel performed -ECHO with no concerning findings -NM cardiac stress test--reported as low risk study -CT angiogram of the chest--No PE, remote granulomatous disease.The previously seen right lower lobe nodule is unchanged. However, there is a new surrounding cavity, suggesting that this may represent a mycetoma.Increased, moderate basilar predominant interstitial lung disease.Increased low density focus involving the pancreatic tail" Incidental finding of low density focus involving pancreatic tail, ongoing -CT pancreas demonstrated "Lobulated enhancing cystic mass within the tail of the pancreas most likely represents a mucinous neoplasm" -Spoke with surgeon personal lines account manager-Dr Bowman who agreed to see the patient in clinic for assessment Hyperlipidemia - Continue Atorvastatin 80 mg q HS Obesity -Recommend outpatient guidance for lifestyle changes, and weight loss. Exam Vital Signs (Last) Date Time Temp Pulse Resp B/P Pulse Ox O2 Delivery O2 Flow Rate FiO2 12/27/16 13:44 37.2 80 16 122/73 96 Room Air 12/25/16 11:18 2 Exam General: No acute distress, well-developed, well-nourished, appropriately interactive HEENT: Normocephalic, atraumatic. External ears without defect. Pupils equal, round, and reactive to light and accommodation. Anicteric sclerae, moist conjunctivae Oropharynx with moist mucosa. Neck: Supple with full range of motion. Cardiovascular: Regular rate and rhythm with no murmurs, rubs, or gallops appreciated Pulmonary: Clear to auscultation bilaterally with no crackles, wheezes, or rhonchi. Normal respiratory effort with no use of accessory muscles. Abdomen: Bowel tones present. Soft, nontender, nondistended. Extremities: No clubbing, cyanosis, edema, or lymphadenopathy appreciated. Skin: Normal temperature, turgor, and texture; no rash, ulcers, or subcutaneous nodules appreciated. Psychiatric: Normal mood and affect. Alert and oriented to person, place, and time. Test 12/25/16 07:55 12/25/16 13:05 12/26/16 04:00 12/26/16 05:10 Hold [place] Top Tube Received (Received) Hemoglobin A1c 6.4% (4.8-5.6) Magnesium Level 2.1mg/dL (1.6-2.6) Thyroid Stimulating Hormone (TSH) 2.840uIU/mL (0.450-4.500) Hold Urine Received (Received) Total Creatine Kinase 121U/L (21-232) Creatine Kinase MB 2.3ng/mL (0.0-10.4) Creatine Kinase MB % % (0.0-5.0) Troponin T 0.010ug/L (0.0-0.011) Triglycerides Level 146mg/dL (0-149) Cholesterol Level 114mg/dL (100-199) LDL Cholesterol, Calculated 47.800mg/dL (0-99) VLDL Cholesterol 29.200mg/dL HDL Cholesterol 37mg/dL (>39) Cholesterol/HDL Ratio 3.08 (0.0-4.4) Test 12/27/16 05:35 White Blood Count 7.5th/mm3 (3.8-10.1) Red Blood Count 4.38mil/mm3 (4.40-5.80) Hemoglobin 13.7g/dL (13.8-17.2) Hematocrit 41.8% (41.0-50.0) Mean Corpuscular Volume 95.4fL (81-100) Mean Corpuscular Hemoglobin 31.3pg (27.0-35.0) Mean Corpuscular Hemoglobin Concent 32.8% (32.0-37.0) Red Cell Distribution Width 13.0% (12.3-15.4) Platelet Count 234bil/L (150-400) Neutrophils (%) (Auto) 44.8% (40-74) Lymphocytes (%) (Auto) 41.9% (14-46) Monocytes (%) (Auto) 8.9% (4-12) Eosinophils (%) (Auto) 3.6% (0-5) Basophils (%) (Auto) 0.5% (0-3) Sodium Level 138mEq/L (134-144) Potassium Level 4.6mEq/L (3.5-5.2) Chloride Level 103mEq/L (97-108) Carbon Dioxide Level 22mmol/L (18-29) Blood Urea Nitrogen 16mg/dL (8-27) Creatinine 0.79mg/dL (0.76-1.27) Estimat Glomerular Filtration Rate 104mL/min (>59) Glucose Level 106mg/dL (60-99) Calcium Level 8.7mg/dL (8.5-10.1) Total Bilirubin 0.2mg/dL (0.0-1.2) Aspartate Amino Transf (AST/SGOT) 17U/L (0-50) Alanine Aminotransferase (ALT/SGPT) 18U/L (0-44) Alkaline Phosphatase 49U/L (25-160) Total Protein 6.6g/dL (6.4-8.4) Albumin 3.8g/dL (3.4-5.0) Discharge Medications Discharge Medications Atorvastatin (Lipitor) 20 Mg Tablet 20 MG PO DAILY (Reported) As needed Nitroglycerin SL (Nitrostat) 0.4 Mg Tab.subl 0.4 MG SL Q5MIN PRN PRN For Chest Pain (Reported) Sildenafil Citrate (Viagra) 100 Mg Tablet 100 MG PO UD PRN PRN for sexual activity (Reported) Followup Plan Discharge Diet: No restrictions Discharge Activity: No restrictions Patient Instructions Your stress test did not show anything concerning. The CT of your pancreas showed a small cyst. You need to follow up with the Surgeon in his clinic in the next week. Follow-up Provider: Power Bowman MD Follow-up with PCP in: 1 week Provider: Jackson Burns MD Follow-up in: 1 week Attending Statement The patient was seen and examined together with Dr. Edouard on 12/27/2016 and I agree with the history, exam and plan as outlined in the note above. copies to: Jackson Burns MD, Tara L DO Dec 28, 2016 22:08 Jaden Pacheco MD Jan 04, 2017 13:49
[2017-03-21] MEDS ORDERED: CIPR-198 PO (17:27)
[2017-03-21] MEDS ORDERED: OMEP40CA36 PO (17:27)
== END 2016-12-27 16:26 | disposition home or self-care (01) ==
LOC: SED 07:45 → MPC 10:39
PROVIDERS: ADMIT Family Medicine; ATTEND Family Medicine
DX: R07.9 Chest pain, unspecified (principal); K86.2 Cyst of pancreas; E78.5 Hyperlipidemia, unspecified; E66.9 Obesity, unspecified; R55 Syncope and collapse; I10 Essential (primary) hypertension; M54.9 Dorsalgia, unspecified; F17.210 Nicotine dependence, cigarettes, uncomplicated; Z68.41 Body mass index [BMI] 40.0-44.9, adult
CPT/HCPCS: 36415; 71275; 74170; 78452; 80048; 80053; 80061; 82550; 82553; 83036; 83735; 84443; 84484; 85025; 93005; 93017; 96374; 96375; 96376; 99285; A9502; C8929; G0378; J1650; J2405; J7030; Q9957; Q9967

== ENCOUNTER 2017-01-25 07:00 | Day surgery (SDC) | payer MEDICARE ==
[~2017-01-25] VITALS: Ht 154.9 cm; Wt 208.0 kg
[~2017-01-25 07:00] MED LIST changes: +ATOR20TA PO; +NITR0.4T SL
[2017-01-25] MEDS ORDERED: Ketamine 10 mg/mL 20 mL Inj ONE (07:01)
[2017-01-25] MEDS ORDERED: fentaNYL-PF 50 mCg/mL 2 mL Inj ONE (07:01)
[2017-01-25] MEDS ORDERED: Propofol 10,000 mCg/mL 20 mL Inj ONE (07:01)
[2017-01-25 08:13] VITALS: BP 132/91; PULSE 84; RESP 15; O2SAT 97
[2017-01-25] MEDS ORDERED: Lactated Ringer's 1,000 ML IV ONE (08:33)
[2017-01-25] MEDS ORDERED: MetoCLOpramide 5 mg/mL 2 mL Inj IVPUSH PRN (08:45)
[2017-01-25] MEDS ORDERED: Lactated Ringer's 1,000 ML IV SCH (08:45)
[2017-01-25] MEDS ORDERED: Ondansetron 2 mg/mL 2 mL Inj IVPUSH PRN (08:45)
--- NOTE | 2017-01-25 08:46 | PCM.HPANE ---
Patient Data Surgeon Admitting Provider: Attending Provider:Roxanne Beth MD Primary Care Physician:Jackson Burns MD Other Provider:Charis Smith Anesthesia Reason for Visit Lesion Of Pancreas Ht/WT & BMI Height (Feet): 5 Height (Inches): 1 Weight (Kilograms): 208 Body Mass Index 86.00 Allergies Coded Allergies: No Known Allergies (Verified , 03/29/07) Past Anesthesia History Anesthesia History: Denies:: Abnormal Airway, Anesthesia Reactions, Difficult Intubation, Fam Anesthesia Reaction, Fam Malignant Hypertherm, Malignant Hyperthermia Diabetes History Hx Diabetes?: No MRSA MRSA: No Medications Hypertension Medication: No Home Meds Incl Beta Zahraa: No Reported Medications Nitroglycerin SL (Nitrostat)0.4 Mg Tab.subl0.4 Mg SL Q5MIN PRN For Chest Pain # 1 BOTTLE Ref 11 12/25/16 Atorvastatin (Lipitor)20 Mg [id number] Mg PO DAILY Ref 0 12/25/16 Sildenafil Citrate (Viagra)100 Mg [id number] Mg PO UD PRN for sexual activity Ref 0 04/26/16 History History of ENT Problems?: Yes HEENT History: Positive for:: Cataracts Dysphagia Hearing Problem (mild) Denies:: Abnormal Airway Difficult Intubation Sinus Problem Hx of Heart Problems?: Yes Cardiovascular History: Positive for:: Chest Pain Denies:: Cardiac Surgery Congestive Heart Failure Edema Heart Murmur Hypertension Irregular Heartbeat Pacemaker Thrombophlebitis Hx of Respiratory Problem?: Yes Respiratory History: Positive for:: Asthma Dyspnea Denies:: COPD Chest Surgery Emphysema Hemoptysis Pneumonia Tuberculosis Hx Neurologic Problems?: Yes Neurological History: Positive for:: Dizziness Headaches Denies:: Alzheimer's Disease CVA Dementia Parkinson's Disease Seizures Hx of GI Problems?: Yes Gastrointestinal History: Positive for:: Gastroesphageal Reflux Heartburn Denies:: Diverticulitis Gastrointestinal Bleeding Hepatitis Hiatal Hernia Rectal Bleeding Hx of Problems?: No Genitourinary History: Denies:: HX of Hemodialysis Kidney Stones Urinary Tract Infection HX of Peritoneal Dialysis: No Male Hx: Denies:: Prostate Problems Scrotal Mass Testicular Surgery Hx Musculoskeletal Problems?: Yes Musculoskeletal History: Positive for:: Back Injury Joint Replacement (right shoulder replacement) Musculoskeletal Trauma Hx of Psycho/Social Problems?: Yes Psycho Social History: Positive for:: Anxiety Denies:: Bipolar Disorder Hx Depression Suicide Attempt Hx Surgeries?: Yes Hx Any Other Health Problems?: Yes Other History: Positive for:: Hospitalization Denies:: Cancer Endocrine Disease Thyroid Disease History Blood Transfusions: Denies:: Blood Transfuse Reaction Blood Transfusions Hx Diabetes: No Hx Alcohol Use: NoHx Substance Use: No Smoking Status: Never Smoker Have You Smoked inLast 12 mo: No Stop/Bang Treated for Sleep Apnea?: No Do You Have a CPAP Machine?: No S-Snoring: Do You Snore Loudly: Yes T-Tired: feel tired, fatigued: Yes O-Obsered: Observed not breath: No P-Blood Pressure: treated: No B- Body Mass Index > 35 kg/m2: Yes A- Age over 50: Yes N- Neck Large Circumference: Yes G- Gender Male: Yes MELISSA Total Score: 6 MELISSA Category 4 OutPt Procedure: Yes Risk Assessment Category Category 1A: Patient has history of documented sleep apnea, and HAS NOT received any narcotic, sedative or anesthesia administration during this stay. Category 1B: Patient has history of documented sleep apnea, and HAS received any narcotic , sedative or anesthesia administration during this stay Category 2: Patient has SUSPECTED Obstructive Sleep Apnea, and HAS received any narcotic , sedative or anesthesia administration during this stay. Category 3: Patient has SUSPECTED Obstructive Sleep Apnea and HAS NOT received narcotic, sedative or anesthesia administration during this stay. Category 4: Outpatient in Procedural Areas with known sleep apnea or who screen positive for High Risk via the STOP/BANG questionnaire. Exam Exam Vital Signs Vital Signs Date Time Temp Pulse Resp B/P Pulse Ox O2 Delivery O2 Flow Rate FiO2 01/25/17 08:13 84 15 132/91 97 Room Air General Appearance: Alert, Oriented X3, Cooperative, No Acute Distress HEENT/AIRWAY: MP 2 Lungs: Clear to Auscultation, Normal Air Movement Heart: Exam Unremarkable, Regular Rate/Rhythm, No Murmurs/Rubs/Gallops Plan Impression Patient chart reviewed, patient interviewed and anesthestic plan with risks, benefits, and alternatives discussed, and informed consent obtained. ASA Physical Status: ASA2 Mod Systemic Disease Anesthetic Plan: MAC Bene/Risks/Altern/Consents: Yes HP Complete Prior to Induction: Yes Trevor Carrizales MD Jan 25, 2017 08:46
[2017-01-25 10:09] VITALS: BP 144/95; PULSE 79; RESP 14; O2SAT 96
[2017-01-25 10:16] VITALS: BP 143/96; PULSE 76; RESP 14; O2SAT 99
[2017-01-25 10:26] VITALS: BP 135/93; PULSE 75; RESP 14; O2SAT 97
--- NOTE | 2017-01-25 15:13 | PCM.ANEP1 ---
Post Anesthesia Phase 1 PACU Phase 1 Assessment Vital Signs Vital Signs Date Time Temp Pulse Resp B/P Pulse Ox O2 Delivery O2 Flow Rate FiO2 01/25/17 10:26 75 14 135/93 97 Room Air 01/25/17 10:16 76 14 143/96 99 Room Air 01/25/17 10:09 79 14 144/95 96 Nasal Cannula 4 01/25/17 08:13 84 15 132/91 97 Room Air Anesthetic Administered: MAC Level of Alertness: Awake, talking THOMPSON's with Equal Strength: Yes Pain: No Nausea or Vomiting: No Oxygen Delivery: Nasal Cannula Lungs: Clear to Auscultation, Normal Air Movement Dermatome Level: Full Sensation Trevor Carrizales MD Jan 25, 2017 15:13
--- NOTE | 2017-01-25 15:14 | PCM.ANEP2 ---
Post Anesthesia Evaluation ASA/CMS Post Anesthesia VS in Patient's Normal Range?: Yes Resp Stable; Airway Patent?: Yes CV Function & Hydration Stable: Yes Mental Status Recovered?: Yes Pain control Satisfactory?: Yes N/V Control Satisfactory?: Yes Trevor Carrizales MD Jan 25, 2017 15:14
--- NOTE | 2017-01-26 04:23 | ENDO ---
[address] [address] ENDOSCOPY PROCEDURE PATIENT: MARTÍN FERNANDEZ : 1950 MR#: [id number] ADMIT: 01/25/2017 JOB ID: [id number] DATE OF PROCEDURE: PROCEDURES: 1. Endoscopic ultrasound. 2. Esophagogastroduodenoscopy. INDICATION: Cystic-appearing lesion in the tail of the pancreas. INSTRUMENTS USED: [id number], as well as [id number] linear echoendoscope. ANESTHESIA: Please see Dr. Trevor Carrizales's anesthesia report for details regarding ASA classification, Mallampati score, and medications. PROCEDURE DETAILS: After informed consent was obtained, the patient was brought into the GI suite, where he was placed on oxygen via cannula and monitored with continuous pulse oximeter, telemetry, and blood pressure monitoring. A time-out was performed. Then, he was placed in the left lateral decubitus position. A bite block was placed. Medications were then administered for sedation. The standard EGD scope was inserted through the bite block and advanced without difficulty to the second portion of the duodenum. FINDINGS: 1. Normal appearing duodenal bulb, first and second portion. 2. Normal appearing pylorus, antrum and gastric body. 3. Retroflexed views in the gastric body revealed a normal appearing cardia and fundus. 4. 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 Multiple biopsies were obtained. 5. The remainder of the esophagus was otherwise unremarkable. PROCEDURE: Next, the linear echoendoscope was then introduced through the bite block and advanced under direct visualization to the second portion of the duodenum without difficulty. Linear echoendoscopic imaging demonstrated the followin. In the tail of the pancreas there was an approximately 2.6 cm x 2.3 cm what appeared to be well-circumscribed multi septated cystic lesion. The lesion did not appear to be communicating with the main pancreatic duct. The lesion was in the tail of pancreas and did not appear to be invading any other adjacent structures. 2. Under Doppler guidance, three passes were made into the lesion with a [employer] 25-gauge core needle. Specimen obtained was placed in cytolyte and sent to pathology. 3. Remainder of the pancreas appeared hyperechoic suggestive of fatty pancreas. 4. The pancreatic duct was identified in the head of the pancreas and appeared to be normal in caliber. However, I was not able to follow this into the body and tail. 5. The common bile duct was identified and appeared to be normal in caliber. 6. The portal vein was identified and flow was present. 7. Splenic artery and vein had flow. 8. Visualized portions of the left lobe of the liver appeared hyperechoic suggestive of fatty liver. 9. Left adrenal gland was visualized and appeared unremarkable. 10. The celiac axis was identified and no suspicious appearing lymph nodes were seen. IMPRESSION: Well-circumscribed multi-cystic lesion in the tail of the pancreas, status post fine needle aspiration. RECOMMENDATIONS: 1. Await FNA results and referral to Surgery Clinic. 2. Cipro for three days. COMPLICATIONS: None. ESTIMATED BLOOD LOSS: Less than 5 mL. MTDD
--- NOTE | 2017-01-26 11:10 | PATH ---
SURGICAL PATHOLOGY Attending Physician:Xiang Virgen CASE STATUS: Signed Out PATIENT NAME: MARTÍN FERNANDEZ PID: [id number] : 1950 DATE COLLECTED:01/25/2017 20:47 SPECIMEN: Esophagus, Biopsy CLINICAL HISTORY: 1). DISTAL ESOPHAGUS BIOPSY FINAL DIAGNOSIS: 1.DISTAL ESOPHAGUS BIOPSY: FRAGMENTS OF SQUAMOUS MUCOSA AND GASTRIC CARDIA-TYPE MUCOSA, CHRONICALLY INFLAMED WITH REACTIVE EPITHELIAL CHANGES. Negative for specialized metaplasia of Sagastume' s-type esophagus. Negative for dysplasia and malignancy. Rare eosinophil present within squamous mucosa, consistent with changes of chronic reflux. ICD10 code K21.0 GROSS DESCRIPTION: The specimen is received in one formalin filled container labeled with the patient's name, sublabeled "distal esophagus" and consists of 2 portions of tissue which aggregate to 4 x 0.3 x 0.2 CM. The specimen is entirely submitted in one cassette. 01/25/2017 DAC MICRO DESCRIPTION: See diagnosis. ICD-9 CODES: CPT CODES: 1: 62085 Electronically Signed Out Abel Cosby MD [facility] [address], [place] [address] Technical component performed at [facility], [facility] [address], [place], [address]
--- NOTE | 2017-01-29 15:00 | PATH ---
SURGICAL PATHOLOGY Attending Physician:Xiang Virgen CASE STATUS: Signed Out PATIENT NAME: MARTÍN FERNANDEZ PID: [id number] : 1950 DATE COLLECTED:01/25/2017 00:00 SPECIMEN: Pancreatic Mass CLINICAL HISTORY: Pancreatic Mass Needle Aspiration No ICD-10 code given FINAL DIAGNOSIS: 1.FINE NEEDLE ASPIRATE, PANCREATIC MASS (ONE THINPREP SLIDE AND ONE CELL BLOCK). NEGATIVE FOR MALIGNANT CELLS. PANCREATIC DUCTAL CELLS AND LYMPHOCYTES ARE PRESENT. ICD10 CODE K86.8 GROSS DESCRIPTION: Received fresh on 01/26/2017 is approximately 30 cc of clear pink fluid. Prepared are one cell block and one ThinPrep slide. Vo/hk MICRO DESCRIPTION: See diagnosis. ICD-9 CODES: CPT CODES: 1: 87302, 28810 Electronically Signed Out Manuel Chauhan MD [facility] [address] [facility], [place] [address] Technical component performed at [facility], [facility] [address], [place], [address]
[2017-03-21] MEDS ORDERED: CIPR-198 PO (17:27)
[2017-03-21] MEDS ORDERED: OMEP40CA36 PO (17:27)
== END 2017-01-25 23:59 | disposition home or self-care (01) ==
LOC: END 07:00
PROVIDERS: ATTEND Internal Medicine Gastroenterology
DX: K86.89 Other specified diseases of pancreas (principal); K21.0 Gastro-esophageal reflux disease with esophagitis; E78.5 Hyperlipidemia, unspecified; E66.01 Morbid (severe) obesity due to excess calories; F41.9 Anxiety disorder, unspecified; J45.909 Unspecified asthma, uncomplicated; F10.21 Alcohol dependence, in remission; Z68.41 Body mass index [BMI] 40.0-44.9, adult
CPT/HCPCS: 43238; 43239; 88112; 88305; J2250; J3010; J7120

== ENCOUNTER 2017-03-23 10:26 | Day surgery (SDC) | payer MEDICARE ==
[~2017-03-23] VITALS: Ht 158.8 cm; Wt 112.4 kg
[~2017-03-23 10:26] MED LIST changes: +CIPR-198 PO; +OMEP40CA36 PO
[2017-03-23] MEDS ORDERED: MethylprednisoLONE Depot 80 mg/mL Inj ONE (10:27)
[2017-03-23] MEDS ORDERED: Iohexol 240 mg/mL 10 mL Inj ONE (10:27)
[2017-03-23 11:27] VITALS: BP 133/84; PULSE 83; RESP 16; O2SAT 95
[2017-03-23 11:46] VITALS: BP 144/78; PULSE 83; RESP 16; O2SAT 98
[2017-03-23 11:50] VITALS: BP 144/78; PULSE 83; RESP 16; O2SAT 97
--- NOTE | 2017-03-23 15:07 | PCM.PROC ---
Procedure Note Date of Service: March 23, 2017 Pre Procedure Diagnosis: PROCEDURE: Lumbar Interlaminar epidural steroid injection. RIGHT paramedian L4- L5 ASA / ANTI-COAGULATION . No asa x 7 days. PRE-PROCEDURE DIAGNOSIS: Lumbar radiculopathy POST-PROCEDURE DIAGNOSIS: same INDICATION: 66-year-old patient with RIGHT leg pain consistent with lumbar radiculopathy PERFORMED BY: Ramsey Wood MD DESCRIPTION OF PROCEDURE: Patient was met in the holding area. Consent was signed, site was confirmed and all questions were answered. Patient was taken to the procedure suite and placed prone on the procedure table. Area was prepped and draped in sterile fashion. Local anesthesia with 1% lidocaine was injected. An 18-gauge Touhy needle was advanced toward the interlaminar space using fluoroscopic guidance after optimizing the AP view. A loss of resistance syringe was attached as we approached the epidural space in the lateral view. After [id number] was obtained, radioopaque contrast was injected under live fluro which confirmed epidural placement without intravascular uptake. Then , 80 mg depomedrol was injected without difficulty. ANESTHESIA: Local. EBL: None. No Blood Products Used COMPLICATIONS: None SPECIMENS: None POST-PROCEDURE DISPOSITION: Patient was returned to the holding area in stable condition. They were discharged home when all discharge criteria were met. Evaluation/Physical Exam before discharge revealed: DISCHARGE MEDICATIONS: FOLLOW UP: Return to clinic in 4 weeks. Ramsey Wood MD * Pain Management * Anesthesiology .ED: Y: Patient given care and follow up instructions Ramsey Wood MD March 23, 2017 15:07
== END 2017-03-23 23:59 | disposition home or self-care (01) ==
LOC: END 10:26
PROVIDERS: ATTEND Anesthesiology Pain Medicine
DX: M54.16 Radiculopathy, lumbar region (principal); Z87.891 Personal history of nicotine dependence
CPT/HCPCS: 62323; J1040

== ENCOUNTER → 2017-07-12 | Day surgery (SDC) | payer MEDICARE ==
[~2017-07-12] VITALS: Ht 162.6 cm; Wt 103.9 kg
[~2017-07-12] MED LIST changes: +CHOL200047 PO; -CIPR-198 PO; +Lactated Ringer's 1,000 ML IV ONE; +Propofol 10 mg/mL 20 mL Inj ONE
--- NOTE | 2017-07-12 07:41 | PCM.HPANE ---
Patient Data Surgeon Admitting Provider: Attending Provider:Roxanne Beth MD Primary Care Physician:Jackson Burns MD Other Provider:Charis Smith Anesthesia Reason for Visit Lesion Of Pancreas Ht/WT & BMI Body Mass Index Allergies Coded Allergies: No Known Allergies (Verified , 03/29/07) Past Anesthesia History Anesthesia History: Denies:: Abnormal Airway, Anesthesia Reactions, Difficult Intubation, Fam Anesthesia Reaction, Fam Malignant Hypertherm, Malignant Hyperthermia Diabetes History Hx Diabetes?: No MRSA MRSA: No Medications Reported Medications Cholecalciferol (Vitamin D3) (Vitamin D3)2,000 Unit Capsule2,000 Unit PO DAILY 07/10/17 Nitroglycerin SL (Nitrostat)0.4 Mg Tab.subl0.4 Mg SL Q5MIN PRN For Chest Pain # 1 BOTTLE Ref 11 12/25/16 Atorvastatin (Lipitor)20 Mg Sovxcy59 Mg PO DAILY Ref 0 12/25/16 Sildenafil Citrate (Viagra)100 Mg Qymmyw912 Mg PO UD PRN for sexual activity Ref 0 04/26/16 Discontinued Reported Medications Omeprazole 40 Mg Capsule.dr40 Mg PO DAILY Ref 0 03/21/17 History History of ENT Problems?: Yes HEENT History: Positive for:: Cataracts Dysphagia Hearing Problem (mild) Denies:: Abnormal Airway Difficult Intubation Sinus Problem Denture Type: None Teeth Condition: Within Normal Limits Hx of Heart Problems?: Yes Cardiovascular History: Positive for:: Chest Pain Denies:: Cardiac Surgery Congestive Heart Failure Edema Heart Murmur Hypertension Irregular Heartbeat Pacemaker Thrombophlebitis Hx of Respiratory Problem?: Yes Respiratory History: Positive for:: Asthma Dyspnea Denies:: COPD Chest Surgery Emphysema Hemoptysis Pneumonia Tuberculosis Hx Neurologic Problems?: Yes Neurological History: Positive for:: Dizziness Headaches Denies:: Alzheimer's Disease CVA Dementia Parkinson's Disease Seizures Hx of GI Problems?: Yes Hx of Problems?: No Genitourinary History: Denies:: HX of Hemodialysis Kidney Stones Urinary Tract Infection HX of Peritoneal Dialysis: No Male Hx: Denies:: Prostate Problems Scrotal Mass Testicular Surgery Hx Musculoskeletal Problems?: Yes Musculoskeletal History: Positive for:: Back Injury Joint Replacement (right shoulder replacement) Musculoskeletal Trauma Hx of Psycho/Social Problems?: Yes Psycho Social History: Positive for:: Anxiety Denies:: Bipolar Disorder Hx Depression Suicide Attempt Hx Surgeries?: Yes Hx Any Other Health Problems?: Yes Other History: Positive for:: Hospitalization Denies:: Cancer Endocrine Disease Thyroid Disease History Blood Transfusions: Denies:: Blood Transfuse Reaction Blood Transfusions Hx Diabetes: No Hx Alcohol Use: NoHx Substance Use: No Smoking Status: Never Smoker Have You Smoked inLast 12 mo: No Stop/Bang Risk Assessment Category Category 1A: Patient has history of documented sleep apnea, and HAS NOT received any narcotic, sedative or anesthesia administration during this stay. Category 1B: Patient has history of documented sleep apnea, and HAS received any narcotic , sedative or anesthesia administration during this stay Category 2: Patient has SUSPECTED Obstructive Sleep Apnea, and HAS received any narcotic , sedative or anesthesia administration during this stay. Category 3: Patient has SUSPECTED Obstructive Sleep Apnea and HAS NOT received narcotic, sedative or anesthesia administration during this stay. Category 4: Outpatient in Procedural Areas with known sleep apnea or who screen positive for High Risk via the STOP/BANG questionnaire. Exam Exam General Appearance: Alert, Oriented X3, Cooperative, No Acute Distress HEENT/AIRWAY: MP 3 Lungs: Normal Air Movement Heart: Regular Rate/Rhythm Plan Impression Patient chart reviewed, patient interviewed and anesthestic plan with risks, benefits, and alternatives discussed, and informed consent obtained. NPO per Anesth. Guidelines: Yes ASA Physical Status: ASA2 Mod Systemic Disease Anesthetic Plan: MAC Bene/Risks/Altern/Consents: Yes HP Complete Prior to Induction: Yes Truman Benton MD Jul 12, 2017 07:41
[2017-07-12 14:12] VITALS: BP 131/89; PULSE 80; RESP 16; O2SAT 96
[2017-07-12 15:42] VITALS: BP 87/70; PULSE 66; RESP 14; O2SAT 99
--- NOTE | 2017-07-12 18:22 | PCM.ANEP1 ---
Post Anesthesia PACU Phase 1 Assessment Vital Signs Vital Signs Date Time Temp Pulse Resp B/P Pulse Ox O2 Delivery O2 Flow Rate FiO2 07/12/17 15:42 66 14 87/70 99 Room Air 07/12/17 14:12 36.6 80 16 131/89 96 Room Air Anesthetic Administered: MAC Level of Alertness: Awake, talking Pain: No Nausea or Vomiting: No CV Function & Hydration Stable: Yes Airway Device: None Lungs: Normal Air Movement PACU Phase 2 Assessment Complications: No Follow up Care: N/A Patient Instructions Provided: N/A Truman Benton MD Jul 12, 2017 18:22
--- NOTE | 2017-07-19 00:24 | ENDO ---
[address] [address] ENDOSCOPY PROCEDURE PATIENT: MARTÍN FERNANDEZ : 1950 MR#: [id number] ADMIT: 07/12/2017 JOB ID: [id number] DATE OF PROCEDURE: PROCEDURE: Endoscopic ultrasound report. INDICATION: Cystic appearing lesion in the tail of the pancreas. ANESTHESIA: Please see anesthesia report for details regarding ASA classification, Mallampati score, and medications. INSTRUMENT USED: [id number] linear echoendoscope. PROCEDURE DETAILS: After informed consent was obtained, the patient was brought into the GI suite, where he was placed on oxygen via nasal cannula and monitored with continuous pulse oximeter, telemetry, and blood pressure monitoring. A time-out was performed. Then, he was placed in the left lateral decubitus position and medications were administered for sedation. The standard linear echoendoscope was introduced through the bite block and advanced without difficulty to the second portion of the duodenum. Linear echoendoscopic imaging demonstrated the followin. In the tail of pancreas, where a previously seen cystic lesion was appreciated, there was a 1.1 x 0.8 mm multiseptated cystic appearing lesion. The cyst appeared to be much larger than the single view of the cyst that I was able to obtain which demonstrated the largest size. The cyst in the image that demonstrated the largest size measured approximately 1.1 cm x 0.8 mm. I did not FNA the cyst as this appeared smaller than previously noted on prior EUS exam. The cyst appeared multiseptated and well circumscribed. It did not appear to be communicating with the main pancreatic duct. 2. The remainder of the pancreas appeared to be hyperechoic suggestive of fatty pancreas. The pancreatic was identified in the head and appeared to be normal in caliber, and I was able to follow this into the body and tail of the pancreas. 3. The common bile duct was identified and appeared to be normal in caliber. The portal vein was identified and flow was present. Splenic artery and vein had flow. Visualized portions of left lobe of liver appeared hyperechoic suggestive of fatty liver. The left adrenal gland was visualized and appeared unremarkable. The celiac access, as well as the SMA, was visualized and appeared unremarkable. IMPRESSION: Stable appearing multiseptated cystic lesion in the tail of pancreas. RECOMMENDATIONS: Continue monitoring and will have patient follow up in GI clinic. COMPLICATIONS: None. ESTIMATED BLOOD LOSS: Zero.
== END | disposition home or self-care (01) ==
LOC: END 08:22
PROVIDERS: ATTEND Internal Medicine Gastroenterology
DX: K86.89 Other specified diseases of pancreas (principal); K21.9 Gastro-esophageal reflux disease without esophagitis; E78.5 Hyperlipidemia, unspecified; J44.9 Chronic obstructive pulmonary disease, unspecified; Z87.891 Personal history of nicotine dependence
CPT/HCPCS: 43237; J2704; J7120